=== PATIENT | female | born 1975 | race Caucasian/White ===

== ENCOUNTER 2020-08-11 14:48 | Emergency (ER) | payer OTHER ==
[~2020-08-11 14:48] MED LIST: Iopamidol 370 76% 50 ML VIAL FS ONE; Iopamidol-370 76% 500 ML 1 ML ONE
--- NOTE | 2020-08-11 15:30 | RAD ---
EXAM: XR Abdomen 2 View/1 View Cxr PROVIDED CLINICAL HISTORY: Abdominal cramping COMPARISON: None FINDINGS: Cardiac and mediastinal silhouette is within normal limits. No focal consolidation, pleural fluid or pneumothorax apparent. There is no evidence for pneumoperitoneum. There is conspicuous gaseous distended colon which does no t appear dilated. A portion of the left colon appears ahaustral. No urinary tract calculi are evident. Conspicuous calcified uterine fibroid. IMPRESSION: Nondilated, gas-filled colon with an ahaustral appearance to the descending colon that can be seen in the setting of colitis.
[2020-08-11 16:16] LABS: #Eosinphils 0.2 thou/uL (0.0-0.7); #Lymphocytes 1.2 thou/uL (1.20-3.40); #Monocytes 0.6 thou/uL (0.11-0.59); #Neutrophils 7.7 thou/uL (1.40-6.50); %Basophils 0.4 % (0.0-1.0); %Eosinophils 1.9 % (0.0-10.0); %Lymphocytes 12.2 % (21.0-51.0); %Monocytes 6.3 % (0.0-10.0); %Neutrophils 79.2 % (42.0-75.0); Hemoglobin 9.7 g/dL (12.0-16.0); Mean Corpuscular HGB CONC 31.6 g/dL (32.0-36.0); Mean Corpuscular Volume 79.3 fL (78.0-98.0); Mean Platelet Volume 7.7 fL (7.4-10.4); Platelet Count 437 thou/uL (130-400); RBC Distribution Width 16.3 % (11.5-14.5); Red Blood Cell (RBC) Count 3.87 mill/uL (4.20-5.40); White Blood Cell (WBC) Count 9.7 thou/uL (4.8-10.8)
[2020-08-11 16:29] LABS: ALT (SGPT) 13 U/L (8-55); AST (SGOT) 15 U/L (5-34); Albumin 3.7 g/dL (3.5-5.0); Alkaline Phosphatase 77 U/L (40-110); Anion Gap 13 mmol/L (10-20); BUN (Urea Nitrogen) 10 mg/dL (7.0-18.7); Bilirubin, Total 0.3 mg/dL (0.2-1.2); Calc. Creatinine Clearance 0 mL/min (70-130); Calcium 8.5 mg/dL (7.8-10.44); Carbon Dioxide 22 mmol/L (22-29); Chloride 106 mmol/L (98-107); Globulin 3.4 g/dL (2.4-3.5); Glucose 100 mg/dL (70-105); Potassium 3.7 mmol/L (3.5-5.1); Protein, Total 7.1 g/dL (6.0-8.3); Sodium 137 mmol/L (136-145)
[2020-08-11 16:44] LABS: Bilirubin Negative (Negative); Blood, Urine 3+ (Negative); Clarity Turbid (Clear); Glucose, Urine (Dipstick) Normal (Negative); Ketone, Urine 20 mg/dL (Negative); Leukocyte 75 Leu/uL (Negative); Nitrite Negative (Negative); Protein, Urine (Dipstick) 30 mg/dL (Neg-Trace); RBC/HPF Greater than 50 HPF (0-3); Specific Gravity, Urine 1.021 (1.002-1.036); Squamous Epithelial 0-3 HPF (0-3); Urobilinogen Normal mg/dL (Less than 2)
[2020-08-11 17:05] LABS: Bacteria/HPF 1+ HPF (None Seen)
[2020-08-11] MEDS ORDERED: Ondansetron PF 4 MG/2 ML Vial ONE (18:54)
[2020-08-11] MEDS ORDERED: Ketorolac Tromethamine 30 MG/ML VIAL ONE (18:54)
[2020-08-11] MEDS ORDERED: Dicyclomine 20 MG TAB ONE (18:54)
--- NOTE | 2020-08-11 21:46 | CT ---
CT Abdomen Pelvis W Con: 08/11/2020 9:15 PM CLINICAL INFORMATION: Hematuria. Abdominal pain and constipation. COMPARISON: None. TECHNIQUE: Multiple contiguous axial images were obtained and a CT of the abdomen and pelvis with IV contrast. Oral contrast was administered. Coronal and sagittal reformats were performed. FINDINGS: Lower Chest: within normal limits. Abdomen: Liver: Subcentimeter hypodensities are too small to definitely characterize . Bile Ducts: Normal caliber. Gallbladder: No calcified gallstones. Normal caliber wall. Pancreas: within normal limits. Spleen: within normal limits. Adrenals: within normal limits. Kidneys: within normal limits. Pelvis: Reproductive Organs: Enlarged uterus with large rim calcified fibroid. Other noncalcified fibroids ar e also seen in the uterus. Ureters: within normal limits. Bladder: within normal limits. Peritoneum: No ascites or free air, no fluid collection. Bowel: The colon is decompressed. There is an area of stranding change adjacent to the sigmoid colon. There is apparent wall thickening is location over a length of approximately 5.1 cm and this area appears mass like. There may be small lymph nodes in the sigmoid mesentery measuring up to 7 mm in si ze. Normal caliber. Normal appendix. Mesentery and Retroperitoneum: No enlarged retroperitoneal lymph nodes. Vessels: Normal. Abdominal Wall: within normal limits. Bones: Degenerative changes in the spine. IMPRESSION: 1. There is an abnormal area in the sigmoid colon concerning for a colon mass with adjacent stranding change and enlarged lymph nodes. Alternatively, this could represent acute diverticulitis with inflammatory mildly enlarged lymph nodes. 2. Fibroid uterus 3. Nonspecific hypodensities in the liver could represent cysts or metastatic lesions.
[2020-08-11] MEDS ORDERED: Acetaminophen/Codeine 30-300mg Tablet ONE (22:33)
== END 2020-08-11 22:40 | disposition home or self-care (01) ==
LOC: ERS 14:48
DX: N30.00 Acute cystitis without hematuria (principal); K59.00 Constipation, unspecified; K52.9 Noninfective gastroenteritis and colitis, unspecified; J45.909 Unspecified asthma, uncomplicated; Z79.84 Long term (current) use of oral hypoglycemic drugs; Z79.899 Other long term (current) drug therapy
CPT/HCPCS: 36415; 74022; 74177; 80053; 81003; 81015; 85025; 96374; 96375; J1885; J2405; Q9967